=== PATIENT | male | born 1965 | race Caucasian/White ===

== ENCOUNTER 2020-04-09 13:53 | Inpatient (IN) | payer MEDICARE, OTHER ==
[~2020-04-09] VITALS: Ht 172.7 cm; Wt 68.0 kg
[~2020-04-09 13:53] MED LIST: ACETAMINOPHEN500 M3 ORAL; AMLODIPINE BESY10 MG ORAL; BENZTROPINE MESY1 MG ORAL; BETAMETHASONE D60 ML TP; BRIMONIDINE TART5 ML BOTH EYES; CALCIUM ACETAT667 M1 PO; KLONOPIN1 MG ORAL; SENSIPAR30 MG ORAL
[2020-04-09] MEDS ORDERED: LOCOID 0.1% LIP15 GM TP (13:56)
[2020-04-09] MEDS ORDERED: FAMOTIDINE20 MG ORAL (13:56)
[2020-04-09] MEDS ORDERED: CLONIDINE HCL0.1 MG PO (13:56)
[2020-04-09] MEDS ORDERED: FOLIC ACID1 MG ORAL (13:56)
[2020-04-09] MEDS ORDERED: AVAPRO300 MG ORAL (13:59)
[2020-04-09] MEDS ORDERED: KEPPRA500 M4 ORAL (13:59)
[2020-04-09] MEDS ORDERED: MINOXIDIL2.5 MG PO (13:59)
[2020-04-09] MEDS ORDERED: NEPHROVITE1 TAB ORAL (13:59)
[2020-04-09] MEDS ORDERED: LABETALOL HCL300 MG ORAL (13:59)
[2020-04-09] MEDS ORDERED: QUETIAPINE FUMA50 MG ORAL (14:00)
[2020-04-09] MEDS ORDERED: ZYPREXA5 MG ORAL (14:00)
--- NOTE | 2020-04-09 14:06 | NUR ---
ED Nurse Note: Pt BIBA from [facility] from [facility] for SOB per SNF, pt was low saturation. Current O2 sat 97% RA. Pt is COVID + on 03/29. He has AV fistula. He is set up on monitor.
--- NOTE | 2020-04-09 15:02 | Diagnostic Imaging Report ---
EXAM: XR Chest, 1 View CLINICAL HISTORY: SOB TECHNIQUE: Frontal view of the chest. COMPARISON: None FINDINGS: Hardware: Right dual-lumen central venous catheter terminates near the junction of the SVC and right atrium. Lungs/pleura: Patchy opacities throughout the lungs. No pleural effusion or pneumothorax. Mild elevation of the right hemidiaphragm. Heart/mediastinum: Mild enlargement of the cardiac silhouette. Soft tissues: Unremarkable. Bones: No acute fracture. Upper abdomen: Normal. Other: Vascular stents in the region of the right axilla. Surgical clips partially visualized in the right upper extremity. IMPRESSION: 1. Right dual-lumen central venous catheter terminates near the junction of the SVC and right atrium. 2. Patchy opacities throughout the lungs, concerning for an infectious/inflammatory process.
[2020-04-09 15:08] VITALS: BP 104/52
--- NOTE | 2020-04-09 17:05 | NUR ---
ED Nurse Note: COVID swab sent to lab. ERMD notified that pt unable to produce urine sample due to dialysis.
[2020-04-09 17:18] VITALS: BP 115/57
[2020-04-09 17:23] LABS: EOSINOPHILS % (AUTO) 0.8 % (0.0-3.0); HEMATOCRIT 25.9 % (42.0-52.0); HEMOGLOBIN 9.2 G/DL (14.2-18.0); LYMPHOCYTES % (AUTO) 16.1 % (20.0-45.0); MEAN CORPUSCULAR VOLUME 83 FL (80-99); NEUTROPHILS % (AUTO) 74.1 % (45.0-75.0); PLATELET COUNT 151 K/UL (150-450); RED BLOOD COUNT 3.11 M/UL (4.70-6.10); RED CELL DISTRIBUTION WIDTH 18.2 % (11.6-14.8); WHITE BLOOD COUNT 6.2 K/UL (4.8-10.8)
[2020-04-09 17:24] LABS: INR 1.1 (0.9-1.1)
[2020-04-09 17:28] LABS: ALANINE AMINOTRANSFERASE 16 U/L (12-78); ALBUMIN 3.4 G/DL (3.4-5.0); ALBUMIN/GLOBULIN RATIO 0.7 (1.0-2.7); ALKALINE PHOSPHATASE 97 U/L (46-116); ANION GAP 13 mmol/L (5-15); ASPARTATE AMINO TRANSFERASE 44 U/L (15-37); BILIRUBIN,TOTAL 0.8 MG/DL (0.2-1.0); BLOOD UREA NITROGEN 75 mg/dL (7-18); CALCIUM 8.1 MG/DL (8.5-10.1); CARBON DIOXIDE 25 MMOL/L (21-32); CHLORIDE 101 MMOL/L (98-107); CREATINE KINASE 494 U/L (26-308); CREATININE 13.2 MG/DL (0.55-1.30); FERRITIN 1244 NG/ML (8-388); LACTATE DEHYDROGENASE 357 U/L (81-234); SODIUM 139 MMOL/L (136-145)
[2020-04-09 17:34] LABS: POTASSIUM 6.3 MMOL/L (3.5-5.1)
--- NOTE | 2020-04-09 17:54 | Emergency Room Report ---
History of Present Illness General Chief Complaint: Dyspnea/Respdistress Present Illness HPI 54-year-old male sent in from facility for increased difficulty with breathing. Prior history of coronavirus infection. Prior history of end-stage renal disease. Patient had recent positive Covid test.Patient was sent in from facility for increased shortness with breath. He denies any current shortness of breath. He had dialysis yesterday. Allergies: Coded Allergies: ADHESIVE TAPE (Verified Allergy, Unknown, 04/09/20) MEPERIDINE (Verified Allergy, Unknown, 04/09/20) COVID-19 Screening Contact w/high risk pt: Yes Experienced COVID-19 symptoms?: Yes COVID-19 Testing performed EMISSIONS INSPECTOR: Yes - 03/29 COVID-19 Screening: Positive COVID-19 COVID-19 Testing Source: unk Patient History Past Medical History: see triage record Reviewed Nursing Documentation: PMH: Agreed; PSxH: Agreed Nursing Documentation-PMH Hx Cardiac Problems: Yes History Of Psychiatric Problem: Yes - psychosis Review of Systems All Other Systems: negative except mentioned in HPI Physical Exam Vital Signs Date Time Temp Pulse Resp B/P (MAP) Pulse Ox O2 Delivery O2 Flow Rate FiO2 04/09/20 13:40 99.3 90 16 140/100 (113) 97 Room Air Sp02 EP Interpretation: reviewed, normal General Appearance: normal inspection, well appearing, no apparent distress, alert, GCS 15, non-toxic Head: atraumatic ENT: normal ENT inspection, hearing grossly normal, normal voice Neck: normal inspection, full range of motion, supple, no bony tend Respiratory: normal inspection, lungs clear, normal breath sounds, no respiratory distress, no retraction, no wheezing Cardiovascular #1: regular rate, rhythm, no edema Gastrointestinal: normal inspection, normal bowel sounds, non tender, soft, no guarding, no hernia Genitourinary: no CVA tenderness Musculoskeletal: normal inspection, back normal, normal range of motion Neurologic: alert, motor strength/tone normal, oriented x3, responsive, speech normal, normal inspection Psychiatric: normal inspection, judgement/insight normal, mood/affect normal Medical Decision Making Diagnostic Impression: Primary Impression: ESRD (end stage renal disease) Additional Impressions: 2019 novel coronavirus detected Hyperkalemia ER Course Patient presented for increased shortness of breath and generalized weakness. Differential diagnosis include was not limited to coronavirus pneumonia, pulmonary edema, fluid overload among others. Chest x-ray read by radiology showed patchy opacities throughout the lungs no pleural effusion or pneumothorax mild elevation of the right hemidiaphragm, right dual-lumen central venous catheter was in place. EKG interpreted by tn showed normal sinus rhythm with T wave peaking consistent with hyperkalemia. Troponin was elevated minimally. Patient was given aspirin. Is given calcium and Kayexalate. Dr. Keith was contacted for inpatient management due to primary care physician. Labs Test 04/09/20 16:42 White Blood Count 6.2 K/UL (4.8-10.8) Red Blood Count 3.11 M/UL (4.70-6.10) Hemoglobin 9.2 G/DL (14.2-18.0) Hematocrit 25.9 % (42.0-52.0) Mean Corpuscular Volume 83 FL (80-99) Mean Corpuscular Hemoglobin 29.5 PG (27.0-31.0) Mean Corpuscular Hemoglobin Concent 35.5 G/DL (32.0-36.0) Red Cell Distribution Width 18.2 % (11.6-14.8) Platelet Count 151 K/UL (150-450) Mean Platelet Volume 9.3 FL (6.5-10.1) Neutrophils (%) (Auto) 74.1 % (45.0-75.0) Lymphocytes (%) (Auto) 16.1 % (20.0-45.0) Monocytes (%) (Auto) 8.0 % (1.0-10.0) Eosinophils (%) (Auto) 0.8 % (0.0-3.0) Basophils (%) (Auto) 1.0 % (0.0-2.0) Prothrombin Time 12.1 SEC (9.30-11.50) Prothromb Time International Ratio 1.1 (0.9-1.1) Activated Partial Thromboplast Time 37 SEC (23-33) D-Dimer 1.55 mg/L FEU (0.00-0.49) Sodium Level 139 MMOL/L (136-145) Potassium Level 6.3 MMOL/L (3.5-5.1) Chloride Level 101 MMOL/L (98-107) Carbon Dioxide Level 25 MMOL/L (21-32) Anion Gap 13 mmol/L (5-15) Blood Urea Nitrogen 75 mg/dL (7-18) Creatinine 13.2 MG/DL (0.55-1.30) Estimat Glomerular Filtration Rate 4.0 mL/min (>60) Glucose Level 91 MG/DL (74-106) Lactic Acid Level 1.30 mmol/L (0.4-2.0) Calcium Level 8.1 MG/DL (8.5-10.1) Ferritin 1244 NG/ML (8-388) Total Bilirubin 0.8 MG/DL (0.2-1.0) Aspartate Amino Transf (AST/SGOT) 44 U/L (15-37) Alanine Aminotransferase (ALT/SGPT) 16 U/L (12-78) Alkaline Phosphatase 97 U/L (46-116) Lactate Dehydrogenase 357 U/L (81-234) Total Creatine Kinase 494 U/L (26-308) Troponin I 0.206 ng/mL (0.000-0.056) C-Reactive Protein, Quantitative 10.0 mg/dL (0.00-0.90) Total Protein 8.3 G/DL (6.4-8.2) Albumin 3.4 G/DL (3.4-5.0) Globulin 4.9 g/dL Albumin/Globulin Ratio 0.7 (1.0-2.7) Lipase 208 U/L (73-393) EKG Diagnostic Results Rate: normal Rhythm: NSR ST Segments: other - Peak T waves Last Vital Signs Date Time Temp Pulse Resp B/P (MAP) Pulse Ox O2 Delivery O2 Flow Rate FiO2 04/09/20 17:18 99.3 88 17 115/57 100 Room Air Status: unchanged Disposition: ADMITTED INPATIENT Condition: Stable Referrals: NOT CHOSEN IPA/,REFERRING (PCP) Javy Israel MD Apr 09, 2020 17:54
[2020-04-09] MEDS ORDERED: Sodium Polystyrene Sulfonate 15gm Powder ORAL ONE (18:00)
[2020-04-09] MEDS ORDERED: Calcium Gluconate 1gm/10ml vial IVP ONE (18:00)
[2020-04-09] MEDS ORDERED: Heparin Sod 1000 units/ml 10ml IV PRN (18:10)
[2020-04-09] MEDS ORDERED: dexAMETHasone 10mg/ml Inj IV ONE (18:15)
[2020-04-09] MEDS ORDERED: Aspirin Baby 81mg ORAL ONE (18:15)
[2020-04-09 18:57] VITALS: BP 120/54
--- NOTE | 2020-04-09 19:10 | NUR ---
ED Nurse Note: Report received from CECIL MARES. Pt provided with food and drinks.
[2020-04-09] MEDS ORDERED: Albuterol 90mcg Inhaler 8gm INH PRN (21:15)
--- NOTE | 2020-04-09 21:29 | Pulmonology Progress Note ---
Subjective ROS Limited/Unobtainable: No Respiratory: Reports: shortness of breath Allergies: Coded Allergies: ADHESIVE TAPE (Verified Allergy, Unknown, 04/09/20) MEPERIDINE (Verified Allergy, Unknown, 04/09/20) Objective Last 24 Hour Vital Signs Date Time Temp Pulse Resp B/P (MAP) Pulse Ox O2 Delivery O2 Flow Rate FiO2 04/09/20 18:57 99.3 81 16 120/54 98 Room Air 04/09/20 17:18 99.3 88 17 115/57 100 Room Air 04/09/20 15:08 84 16 104/52 99 Room Air 04/09/20 14:45 84 16 Room Air 04/09/20 13:40 99.3 90 16 140/100 (113) 97 Room Air Laboratory Tests 04/09/20 16:42: White Blood Count 6.2, Red Blood Count 3.11L, Hemoglobin 9.2L, Hematocrit 25.9L, Mean Corpuscular Volume 83, Mean Corpuscular Hemoglobin 29.5, Mean Corpuscular Hemoglobin Concent 35.5, Red Cell Distribution Width 18.2H, Platelet Count 151, Mean Platelet Volume 9.3, Neutrophils (%) (Auto) 74.1, Lymphocytes (%) (Auto) 16.1L, Monocytes (%) (Auto) 8.0, Eosinophils (%) (Auto) 0.8, Basophils (%) (Auto) 1.0, Prothrombin Time 12.1H, Prothromb Time International Ratio 1.1, Activated Partial Thromboplast Time 37H, D-Dimer 1.55H, Sodium Level 139, Potassium Level 6.3*H, Chloride Level 101, Carbon Dioxide Level 25, Anion Gap 13, Blood Urea Nitrogen 75H, Creatinine 13.2H, Estimat Glomerular Filtration Rate 4.0, Glucose Level 91, Lactic Acid Level 1.30, Calcium Level 8.1L, Ferritin 1244H, Total Bilirubin 0.8, Aspartate Amino Transf (AST/SGOT) 44H, Alanine Aminotransferase (ALT/SGPT) 16, Alkaline Phosphatase 97, Lactate Dehydrogenase 357H, Total Creatine Kinase 494H, Troponin I 0.206H, C-Reactive Protein, Quantitative 10.0H, Pro-B-Type Natriuretic Peptide [Pending], Total Protein 8.3H , Albumin 3.4, Globulin 4.9, Albumin/Globulin Ratio 0.7L, Lipase 208 Current Medications Medications (Trade) Dose Ordered Sig/Duncan Route PRN Reason Start Time Stop Time Status Last Admin Dose Admin Heparin Sodium (Porcine) (Heparin Sod 1000 units/ml 10ml) 2,000 unit ONCE PRN IV HD USE 04/09/20 18:10 04/10/20 23:59 Sodium Chloride 1,000 ml @ 500 mls/hr Q2H PRN IVLG sbp<90 during hd 04/09/20 18:15 04/10/20 23:59 Assessment/Plan Assessment/Plan Pulmonary Consultation HPI Patient is a 54-year-old male with ESRD on HD,recently noted to be Covid19 positive,admitted with difficulty breathing. Prior history of end-stage renal disease. He had dialysis yesterday. Currently denies signifiacnt SOB, normalO2 sats on RA. Noted to have elevated K in the ED. Allergies: Coded Allergies: ADHESIVE TAPE (Verified Allergy, Unknown, 04/09/20) MEPERIDINE (Verified Allergy, Unknown, 04/09/20) Past Medical History: CKD,ESRD on HD, Cardiac Disease,Psychosis Family History: NC Social History: NC All Other Systems: negative except mentioned in HPI Physical Exam Vital Signs Noted Date Time Temp Pulse Resp B/P (MAP) Pulse Ox O2 Delivery O2 Flow Rate FiO2 04/09/20 13:40 99.3 90 16 140/100 (113) 97 Room Air General Appearance: normal inspection, well appearing, no apparent distress, alert, GCS 15, non-toxic Head: atraumatic ENT: normal ENT inspection, hearing grossly normal, normal voice Neck: normal inspection, full range of motion, supple, no bony tend Respiratory: normal inspection, lungs clear, normal breath sounds, no respiratory distress, no retraction, no wheezing Cardiovascular: regular rate, rhythm, no edema Gastrointestinal: normal inspection, normal bowel sounds, non tender, soft, no guarding, no hernia Genitourinary: no CVA tenderness Musculoskeletal: normal inspection, back normal, normal range of motion Neurologic: alert, motor strength/tone normal, oriented x3, responsive, speech normal, normal inspection Psychiatric: normal inspection, judgement/insight normal, mood/affect normal Per report -deferred Covid19 Medical Decision Making Impression: End stage renal disease on HD 2019 novel coronavirus infection with possible pneumonia Normal O2 sats on RA currently Hyperkalemia H/o Heart Disease Elevated Troponin Psychosis Plan - O2 PRN - Azithromycin - Hold of on Deacdron for now - Albuterol PRN - PPX - GOLF [employer]CHIT[employer] meds - Received Kayexalate - HD per Renal Labs noted Test 04/09/20 16:42 White Blood Count 6.2 K/UL (4.8-10.8) Red Blood Count 3.11 M/UL (4.70-6.10) Hemoglobin 9.2 G/DL (14.2-18.0) Hematocrit 25.9 % (42.0-52.0) Mean Corpuscular Volume 83 FL (80-99) Mean Corpuscular Hemoglobin 29.5 PG (27.0-31.0) Mean Corpuscular Hemoglobin Concent 35.5 G/DL (32.0-36.0) Red Cell Distribution Width 18.2 % (11.6-14.8) Platelet Count 151 K/UL (150-450) Mean Platelet Volume 9.3 FL (6.5-10.1) Neutrophils (%) (Auto) 74.1 % (45.0-75.0) Lymphocytes (%) (Auto) 16.1 % (20.0-45.0) Monocytes (%) (Auto) 8.0 % (1.0-10.0) Eosinophils (%) (Auto) 0.8 % (0.0-3.0) Basophils (%) (Auto) 1.0 % (0.0-2.0) Prothrombin Time 12.1 SEC (9.30-11.50) Prothromb Time International Ratio 1.1 (0.9-1.1) Activated Partial Thromboplast Time 37 SEC (23-33) D-Dimer 1.55 mg/L FEU (0.00-0.49) Sodium Level 139 MMOL/L (136-145) Potassium Level 6.3 MMOL/L (3.5-5.1) Chloride Level 101 MMOL/L (98-107) Carbon Dioxide Level 25 MMOL/L (21-32) Anion Gap 13 mmol/L (5-15) Blood Urea Nitrogen 75 mg/dL (7-18) Creatinine 13.2 MG/DL (0.55-1.30) Estimat Glomerular Filtration Rate 4.0 mL/min (>60) Glucose Level 91 MG/DL (74-106) Lactic Acid Level 1.30 mmol/L (0.4-2.0) Calcium Level 8.1 MG/DL (8.5-10.1) Ferritin 1244 NG/ML (8-388) Total Bilirubin 0.8 MG/DL (0.2-1.0) Aspartate Amino Transf (AST/SGOT) 44 U/L (15-37) Alanine Aminotransferase (ALT/SGPT) 16 U/L (12-78) Alkaline Phosphatase 97 U/L (46-116) Lactate Dehydrogenase 357 U/L (81-234) Total Creatine Kinase 494 U/L (26-308) Troponin I 0.206 ng/mL (0.000-0.056) C-Reactive Protein, Quantitative 10.0 mg/dL (0.00-0.90) Total Protein 8.3 G/DL (6.4-8.2) Albumin 3.4 G/DL (3.4-5.0) Globulin 4.9 g/dL Albumin/Globulin Ratio 0.7 (1.0-2.7) Lipase 208 U/L (73-393) EKG: Rate: normal Rhythm: NSR ST Segments: other - Peak T waves CXR: Bilateral patchy infiltrates, central line Castillo Romero MD Apr 09, 2020 21:29
[2020-04-09 22:00] VITALS: BP 110/67
[2020-04-09] MEDS ORDERED: Azithromycin 250mg tab ORAL SCH (22:00)
--- NOTE | 2020-04-09 22:00 | NUR ---
ED Nurse Note: Patient asleep on bed. VSS as documented.
[2020-04-09] MEDS: Heparin 5000 units/ml inj SUBQ SCH (22:30)
[2020-04-10] VITALS (7 sets, daily range): BP systolic 90–111; BP diastolic 50–72
--- NOTE | 2020-04-10 01:00 | NUR ---
ED Nurse Note: Paged [facility] at [phone] and spoke to DANIEL for pts HD to be done. Awaiting for RN callback
--- NOTE | 2020-04-10 04:04 | NUR ---
ED Nurse Note: Followed up with [facility] and spoke to DANIEL; nurse SUSHMA/ LENCHO would be calling to do HD for the pt per DANIEL
--- NOTE | 2020-04-10 04:10 | NUR ---
ED Nurse Note: Admit order labs sent for workup
--- NOTE | 2020-04-10 04:10 | NUR ---
ED Nurse Note: RECEIVED ADMISSION ORDERS FROM DONNA MCCOY; NOTED AND CARRIED OUT.
[2020-04-10] MEDS ORDERED: Acetaminophen 500mg (ES) tab ORAL SCH (04:15)
[2020-04-10 04:45] LABS: HEMATOCRIT 24.5 % (42.0-52.0); HEMOGLOBIN 8.6 G/DL (14.2-18.0); MEAN CORPUSCULAR VOLUME 82 FL (80-99); PLATELET COUNT 158 K/UL (150-450); RED BLOOD COUNT 2.98 M/UL (4.70-6.10); RED CELL DISTRIBUTION WIDTH 18.7 % (11.6-14.8); WHITE BLOOD COUNT 4.3 K/UL (4.8-10.8)
[2020-04-10 04:55] LABS: CALCIUM 8.1 MG/DL (8.5-10.1); CREATININE 14.5 MG/DL (0.55-1.30); POTASSIUM 5.5 MMOL/L (3.5-5.1)
[2020-04-10] MEDS ORDERED: Heparin 5000 units/ml inj SUBQ SCH (06:00)
--- NOTE | 2020-04-10 06:02 | NUR ---
ED Nurse Note: Spoke to SUSHMA RN of [facility], stated they cannot do HD at ER. HD nurse would come around [id number] once the patient is in the room.
[2020-04-10] MEDS: Heparin 5000 units/ml inj SUBQ SCH ×3 (06:07→21:28)
--- NOTE | 2020-04-10 06:44 | NUR ---
ED Nurse Note: CRE, VRE, MRSA swab sent
[2020-04-10] MEDS ORDERED: Albuterol/Ipratropium 3ml neb HHN SCH (07:00)
--- NOTE | 2020-04-10 08:15 | NUR ---
ED Nurse Note: Pt was transferred to telemetry unit under the care of Dr. Alvarez. Report for transfer was given to SUZAN Bermudez for continuity of care. Pt was transferred on stable condition, covid-19 protocol observed.
--- NOTE | 2020-04-10 08:36 | Pulmonology Progress Note ---
Subjective ROS Limited/Unobtainable: No Respiratory: Reports: shortness of breath Allergies: Coded Allergies: ADHESIVE TAPE (Verified Allergy, Unknown, 04/09/20) MEPERIDINE (Verified Allergy, Unknown, 04/09/20) Subjective care noted full code on isolation Objective Last 24 Hour Vital Signs Date Time Temp Pulse Resp B/P (MAP) Pulse Ox O2 Delivery O2 Flow Rate FiO2 04/10/20 06:00 99.0 77 18 105/63 98 Room Air 88 04/10/20 02:00 99.0 84 18 104/72 98 Room Air 88 04/09/20 22:00 99.3 84 18 110/67 98 Room Air 88 04/09/20 18:57 99.3 81 16 120/54 98 Room Air 04/09/20 17:18 99.3 88 17 115/57 100 Room Air 04/09/20 15:08 84 16 104/52 99 Room Air 04/09/20 14:45 84 16 Room Air 04/09/20 13:40 99.3 90 16 140/100 (113) 97 Room Air Intake and Output 04/09/20 04/10/20 19:00 07:00 Intake Total 0 ml Balance 0 ml Intake Oral 0 ml Objective deferred due to possible COVID Laboratory Tests 04/09/20 16:42: White Blood Count 6.2, Red Blood Count 3.11L, Hemoglobin 9.2L, Hematocrit 25.9L, Mean Corpuscular Volume 83, Mean Corpuscular Hemoglobin 29.5, Mean Corpuscular Hemoglobin Concent 35.5, Red Cell Distribution Width 18.2H, Platelet Count 151, Mean Platelet Volume 9.3, Neutrophils (%) (Auto) 74.1, Lymphocytes (%) (Auto) 16.1L, Monocytes (%) (Auto) 8.0, Eosinophils (%) (Auto) 0.8, Basophils (%) (Auto) 1.0, Prothrombin Time 12.1H, Prothromb Time International Ratio 1.1, Activated Partial Thromboplast Time 37H, D-Dimer 1.55H, Sodium Level 139, Potassium Level 6.3*H, Chloride Level 101, Carbon Dioxide Level 25, Anion Gap 13, Blood Urea Nitrogen 75H, Creatinine 13.2H, Estimat Glomerular Filtration Rate 4.0, Glucose Level 91, Lactic Acid Level 1.30, Calcium Level 8.1L, Ferritin 1244H, Total Bilirubin 0.8, Aspartate Amino Transf (AST/SGOT) 44H, Alanine Aminotransferase (ALT/SGPT) 16, Alkaline Phosphatase 97, Lactate Dehydrogenase 357H, Total Creatine Kinase 494H, Troponin I 0.206H, C-Reactive Protein, Quantitative 10.0H, Pro-B-Type Natriuretic Peptide [Pending], Total Protein 8.3H , Albumin 3.4, Globulin 4.9, Albumin/Globulin Ratio 0.7L, Lipase 208 04/10/20 04:24: White Blood Count 4.3L, Red Blood Count 2.98L, Hemoglobin 8.6L, Hematocrit 24.5L , Mean Corpuscular Volume 82, Mean Corpuscular Hemoglobin 28.8, Mean Corpuscular Hemoglobin Concent 34.9, Red Cell Distribution Width 18.7H, Platelet Count 158, Mean Platelet Volume 9.0, Neutrophils (%) (Auto) , Lymphocytes (%) (Auto) , Monocytes (%) (Auto) , Eosinophils (%) (Auto) , Basophils (%) (Auto) , Activated Partial Thromboplast Time 40H, Sodium Level 138, Potassium Level 5.5H, Chloride Level 101, Carbon Dioxide Level 23, Anion Gap 9, Blood Urea Nitrogen 83H, Creatinine 14.5H, Estimat Glomerular Filtration Rate 3.6, Glucose Level 128H, Calcium Level 8.1L, Troponin I 0.153H Current Medications Medications (Trade) Dose Ordered Sig/Duncan Route PRN Reason Start Time Stop Time Status Last Admin Dose Admin Acetaminophen (Tylenol) 500 mg Q6H PRN ORAL Pain Scale (3-5) 04/10/20 04:45 05/10/20 04:14 Albuterol Sulfate (Proventil MDI) 2 puff Q4H PRN INH Shortness of Breath 04/09/20 21:15 07/08/20 21:14 Albuterol/ Ipratropium (Albuterol/ Ipratropium) 3 ml Q6HRT HHN 04/10/20 07:00 04/15/20 06:59 Amlodipine Besylate (Norvasc) 10 mg DAILY ORAL 04/10/20 09:00 05/10/20 08:59 Benztropine Mesylate (Cogentin) 0.5 mg DAILY ORAL 04/10/20 09:00 05/10/20 08:59 Brimonidine Tartrate (Alphagan) 1 drop BID BOTH EYES 04/10/20 09:00 07/09/20 08:59 Cinacalcet (Sensipar) 90 mg DAILY ORAL 04/10/20 09:00 07/09/20 08:59 Clonazepam (KlonoPIN) 1 mg BID ORAL 04/10/20 09:00 04/17/20 08:59 Famotidine (Pepcid) 10 mg Q48H ORAL 04/10/20 09:00 07/09/20 08:59 Folic Acid (Folate) 1 mg DAILY ORAL 04/10/20 09:00 05/10/20 08:59 Heparin Sodium (Porcine) (Heparin 5000 units/ml) 5,000 units EVERY 8 HOURS SUBQ 04/09/20 22:00 05/24/20 21:59 04/10/20 06:07 Heparin Sodium (Porcine) (Heparin Sod 1000 units/ml 10ml) 2,000 unit ONCE PRN IV HD USE 04/09/20 18:10 04/10/20 23:59 Labetalol HCl (Normodyne) 300 mg TID ORAL 04/10/20 09:00 05/10/20 08:59 Levetiracetam (Keppra) 500 mg EVERY 12 HOURS ORAL 04/10/20 09:00 05/10/20 08:59 Minoxidil (Loniten) 5 mg DAILY ORAL 04/10/20 09:00 07/09/20 08:59 Olanzapine (ZyPREXA) 5 mg BID ORAL 04/10/20 09:00 05/25/20 08:59 Quetiapine Fumarate (SEROqueL) 50 mg BID ORAL 04/10/20 09:00 05/25/20 08:59 Sodium Chloride 1,000 ml @ 500 mls/hr Q2H PRN IVLG sbp<90 during hd 04/09/20 18:15 04/10/20 23:59 Vitamin B Complex/ Vit C/Folic Acid (Nephrovite) 1 tab DAILY ORAL 04/10/20 09:00 05/10/20 08:59 Assessment/Plan Assessment/Plan Impression: End stage renal disease on HD 2019 novel coronavirus infection with possible pneumonia Normal O2 sats on RA currently Hyperkalemia H/o Heart Disease Elevated Troponin Psychosis Plan - O2 PRN - Azithromycin - Albuterol PRN - monitor imaging - DVT prophylaxis - HD per Renal - monitor for change and await further results impression, plan, and exam edited and reviewed in detail care discussed with Jonathan Joe MD Apr 10, 2020 08:36
--- NOTE | 2020-04-10 08:45 | NUR ---
NURSE NOTES: Admitted pt from the ED. pt is asleep and arousable to touch. respiration is even and unlabored on room air. HOB elevated. no facial grimacing for pain noted. no episodes of coughing noted at this time. RUC perma-cath inplace. pt is awaiting for dialysis. call light is within reach.
[2020-04-10] MEDS ORDERED: Minoxidil 2.5mg tab ORAL SCH (09:00)
--- NOTE | 2020-04-10 10:15 | History and Physical Report ---
DATE OF ADMISSION: 04/09/2020 CHIEF COMPLAINT: Shortness of breath. HISTORY OF PRESENT ILLNESS: This is a 54-year-old male from [facility]. The patient was just discharged from [facility] due to hemodialysis access problems. He turned out COVID-19 positive last week. The patient was reported to have increased shortness of breath in his facility. PAST MEDICAL HISTORY: 1. End-stage renal failure, on dialysis. 2. Hypertensive cardiovascular disease. 3. Schizophrenia. 4. Glaucoma. 5. Secondary hyperparathyroidism. MEDICATIONS: Tylenol as needed, albuterol inhalation, amlodipine, baby aspirin, benztropine, Alphagan, Sensipar, Klonopin, DuoNeb inhalation, Pepcid, folic acid, Keppra, minoxidil, Nephro-Leona, Zyprexa, and Seroquel. ALLERGIES: Allergies to adhesive tape and meperidine. FAMILY HISTORY: Unremarkable. SOCIAL HISTORY: [facility] in a prison. HABITS: He is a heavy cigarette smoker. REVIEW OF SYSTEMS: HEENT: Hearing and eyesight are normal. ENDOCRINE: Significant for severe secondary hyperparathyroidism. RESPIRATORY: The patient is a heavy cigarette smoker and his shortness of breath is actually not new. CARDIAC: He denies chest pain or palpitations. GASTROINTESTINAL: No history of hematochezia, melena, hematemesis, diarrhea, or constipation. NEUROLOGIC: No history of stroke. He has history of seizures, which are rare. PSYCHIATRIC: Significant for schizophrenia, under control. PHYSICAL EXAMINATION: GENERAL: This is an elderly male, who is in no acute distress. VITAL SIGNS: Blood pressure 95/70, pulse is 82 and regular, respirations 20, and temperature 99. HEENT: The head is normocephalic and atraumatic. Pupils are equal, round, and reactive to light and accommodation consensually. NECK: Supple. Trachea midline. There was no lymphadenopathy or thyromegaly. LUNGS: Bilateral wheezes. HEART: Regular rate and rhythm without rubs, murmurs, or gallops. ABDOMEN: Soft and nontender. Bowel sounds were active. EXTREMITIES: No clubbing, cyanosis, or edema. He has a left upper arm AV fistula. NEUROLOGIC: He is alert and oriented x4. Cranial nerves II through XII intact. LABORATORY AND ANCILLARY DATA: On admission yesterday, hematocrit 24.5. The rest of the CBC shows platelet count 158,000, WBC 4.3. Chemistry - his potassium before Kayexalate was 6.3, today 5.5; BUN 75, today 83. Troponin level 0.206 and today 0.153. IMAGING REPORT: right dual-lumen central venous catheter terminates near the junction of the SVC and right atrium. Patchy opacities throughout the lungs concerning for infectious, inflammatory process. ASSESSMENT: 1. Bilateral COVID-19 pneumonia with mild hypoxia. 2. End-stage renal failure, on dialysis. 3. Hypertensive cardiovascular disease. 4. Schizophrenia. 5. Glaucoma. 6. Secondary hyperparathyroidism. 7. Hyperkalemia. PLAN: 1. Hemodialysis today. 2. ID consult 3. Continue prison medications. Daily Guerrero M.D. DR: [place] JOB#: [id number] CC: ED
[2020-04-10] MEDS: Sensipar 30mg Tab ORAL SCH (11:34)
[2020-04-10] MEDS: OLANZapine 2.5mg tab ORAL SCH ×2 (11:34→18:10)
[2020-04-10] MEDS: Benztropine 1mg tab ORAL SCH (11:35)
[2020-04-10] MEDS: Nephrovite tab (Rena-Vite) ORAL SCH (11:35)
--- NOTE | 2020-04-10 12:24 | NUR ---
pt for HD schedule [facility] message left in her VM at out of the office, duty worker, [employer] yard person tel# [phone], and message left.
--- NOTE | 2020-04-10 14:00 | Consultation ---
DATE OF CONSULTATION: 04/10/2020 INFECTIOUS DISEASES CONSULTATION CONSULTING PHYSICIAN: Alexus Michael MD. REFERRING PHYSICIAN: Daily Guerrero MD. REASON FOR CONSULTATION: COVID-19 pneumonia. HISTORY OF PRESENTING ILLNESS: This is a 54-year-old gentleman with history of hypertension, schizophrenia, renal failure, on dialysis, glaucoma, secondary hyperparathyroidism, who was discharged from [facility]. He turned out to have COVID-19 pneumonia and he has increasing shortness of breath. An Infectious Diseases consultation has been obtained for antibiotics. PAST MEDICAL HISTORY: 1. History of hypertension. 2. Schizophrenia. 3. Renal failure, on dialysis. 4. Glaucoma. 5. Secondary hyperparathyroidism. SOCIAL HISTORY: He is a smoker. He does not drink or use drugs. FAMILY HISTORY: Unknown. REVIEW OF SYSTEMS: Unable to obtain currently. MEDICATIONS: As an inpatient, he is on Epogen, famotidine, vitamin B, C, folic acid, Seroquel, Zyprexa, Keppra, Normodyne, folic acid, Klonopin, Sensipar, brimonidine drops, benztropine, amlodipine, Tylenol, subcutaneous heparin, albuterol. ALLERGIES: 1. Adhesive tape. 2. Meperidine. PHYSICAL EXAMINATION: VITAL SIGNS: Temperature of 98.2, T-max of 99.3, pulse of 68, respiratory rate 18, blood pressure 99/57, O2 saturation of 99% on room air. Examination deferred due to COVID-19. LABORATORY AND DIAGNOSTIC DATA: White count 4.3, hemoglobin 8.6, hematocrit 24.5, MCV 82, platelet count 158. Sodium 138, potassium 5.5, chloride 101, bicarb 23, BUN 83, creatinine 14.5, glucose 128, calcium 8.1. AST 44, ALT 16, and alkaline phosphatase 97, LDH 357. CK of 494. Troponin 0.153. C-reactive protein of 10. Total protein 8.3, albumin 3.4. Lipase of 208. Hepatitis B surface antigen is pending. Chest x-ray is showing patchy opacities throughout the lungs concerning for infectious inflammatory process. ASSESSMENT: This is a 54-year-old gentleman with history of hypertension, renal failure, on dialysis, schizophrenia, who comes in with shortness of breath and was found to have. 1. COVID-19 pneumonia. He is on room air with saturation of 99%. 2. Renal failure, on dialysis. 3. Schizophrenia. 4. Hypertension. PLAN: 1. We will start the patient on ivermectin one dose. 2. Continue Decadron, that was started yesterday, day #2. 3. Continue isolation. 4. We will follow up the patient clinically. I would like to thank, Dr. Guerrero, for this consultation. Alexus Michael M.D. DR: BUTCH JOB#: [id number] CC: Daily Guerrero MD.; Fax#: [phone]
--- NOTE | 2020-04-10 14:34 | NUR ---
CASE MANAGEMENT:REVIEW BIBA FROM [facility] CC; SOB SI: HYPERKALEMIA. ESRD. COVID(+) 99.3 90 16 90/72 97% ON RA K+6.3 BUN+75 CR+13.2 IS: CA GLUCONATE KAYEXALATE PO ASA PO IV DECADRON 1L NS BOLUS NOVEL COVID : TO TELEMETRY
[2020-04-10] MEDS: Brimonidine 0.2% Opth Sol BOTH EYES SCH (18:51)
--- NOTE | 2020-04-10 19:24 | NUR ---
HAND-OFF: Report given to DONATO/RN.
--- NOTE | 2020-04-10 19:30 | NUR ---
NURSE NOTES: Received report from Aidan MARES.The patient was noted with anxiety and agitation. He was immediately yelling that he need a Benadryl. A calm environment was provided as indicated.The patient completed dialysis today as a result of hyperkalemia with 2.5 liters of fluids taken out.Patient has a right upper chest PermCath noted with clean dressing.He has a LFA 22g that is patent and asymptomatic.The bed in low level, call light within easy reach. will continue to monitor as indicated.
--- NOTE | 2020-04-10 20:56 | NUR ---
NURSE NOTES: A voice message was left for Dr Guerrero concerning the patient increasing anxiety and agitations and that the patient is asking for Benadryl for itchiness.
[2020-04-10] MEDS ORDERED: Epoetin Alfa-EPBX (NON ESRD)4000 units/ml vial SUBQ SCH (21:00)
[2020-04-10] MEDS: Acetaminophen 500mg (ES) tab ORAL PRN (21:23)
--- NOTE | 2020-04-10 23:31 | NUR ---
NURSE NOTES: The patient is increasingly anxious and has removed his front desk monitor and thrown on the floor that he does not want it at this time. A calm environment was provided and will followup with Dr. Guerrero as indicated..
[2020-04-11] VITALS (7 sets, daily range): BP systolic 96–108; BP diastolic 50–65
[2020-04-11] MEDS: Heparin 5000 units/ml inj SUBQ SCH ×3 (06:15→21:10)
--- NOTE | 2020-04-11 07:30 | NUR ---
NURSE NOTES: Received patient report from SUZAN Villanueva. Patient AO x3. No pain or discomfort noted at this time. Patient has a right upper chest PermCath noted with clean dressing.He has a LFA 22g that is patent and asymptomatic. Bed in lowest position, locked with side rails x2 up. Call light within reach.
--- NOTE | 2020-04-11 07:30 | NUR ---
NURSE HAND-OFF REPORT: Important Events on Shift:Anxiety and agitations noted Patient Status: Diet: Pending Orders: Pending Results/Labs: Pending MD notification: Latest Vital Signs: Temperature 98.6 , Pulse 108 , B/P 108 /65 , Respiratory Rate 21 , O2 SAT 96 , Room Air, O2 Flow Rate . Vital Sign Comment: EKG Rhythm: ST w/AVB Rhythm change?: Y Notified?: Nohelia Romero MD Response: Latest Ch Fall Score: 50 Fall Risk: High Risk Safety Measures: Call light Within Reach, Bed Alarm Zone 1, Side Rails Side Rails x1, Bed position Low and Locked. Fall Precautions: Yellow Socks Yellow Gown Door Sign Patient Fall Education Report given to .
[2020-04-11] MEDS: OLANZapine 2.5mg tab ORAL SCH ×2 (08:47→17:17)
[2020-04-11] MEDS: Sensipar 30mg Tab ORAL SCH (08:47)
[2020-04-11] MEDS: Nephrovite tab (Rena-Vite) ORAL SCH (08:47)
[2020-04-11] MEDS: Benztropine 1mg tab ORAL SCH (08:48)
[2020-04-11] MEDS: Brimonidine 0.2% Opth Sol BOTH EYES SCH ×2 (08:49→17:17)
[2020-04-11] MEDS ORDERED: NORCO 5-325 TA1 EAC1 ORAL (09:57)
[2020-04-11] MEDS ORDERED: NIZORAL 2% C1 APPLIC TOPIC (09:57)
[2020-04-11] MEDS ORDERED: VITAMIN D325 MC1 PO (09:57)
[2020-04-11] MEDS ORDERED: CINACALCET HCL90 MG PO (09:57)
[2020-04-11] MEDS ORDERED: LUMIGAN2.5 ML BOTH EYES (09:57)
[2020-04-11] MEDS ORDERED: THROAT DROPS2.8 MG MM (09:57)
[2020-04-11] MEDS ORDERED: BENZTROPINE ME0.5 MG ORAL (09:57)
[2020-04-11] MEDS ORDERED: OXISTAT30 G1 TP (09:57)
--- NOTE | 2020-04-11 10:18 | Infectious Diseases Prog Note ---
Assessment/Plan Assessment/Plan A: 1. COVID-19 pneumonia. 2. Renal failure, on dialysis. 3. Schizophrenia. 4. Hypertension. PLAN: 1. Got ivermectin one dose. 2. Discontinue Decadron, 3. Continue isolation. Subjective ROS Limited/Unobtainable: No Constitutional: Reports: anorexia, other - dosen't feel good Respiratory: Reports: dry cough; Denies: shortness of breath Gastrointestinal/Abdominal: Reports: no symptoms Genitourinary: Reports: no symptoms Allergies: Coded Allergies: ADHESIVE TAPE (Verified Allergy, Unknown, 04/09/20) MEPERIDINE (Verified Allergy, Unknown, 04/09/20) Objective Last 24 Hour Vital Signs Date Time Temp Pulse Resp B/P (MAP) Pulse Ox O2 Delivery O2 Flow Rate FiO2 04/11/20 08:49 98 100/58 04/11/20 08:49 98 100/58 04/11/20 08:00 98.0 98 19 100/58 (72) 96 04/11/20 04:00 98.6 108 21 108/65 (79) 96 04/11/20 04:00 123 04/11/20 00:00 99.1 102 19 99/60 (73) 95 04/10/20 21:00 Room Air 04/10/20 20:00 99 04/10/20 20:00 98.9 108 18 102/50 (67) 97 04/10/20 18:00 82 111/62 04/10/20 16:00 83 04/10/20 16:00 98.3 82 20 104/62 (76) 95 04/10/20 13:00 81 103/56 04/10/20 12:00 98.1 73 20 103/56 (72) 95 04/10/20 12:00 81 Height (Feet): 5 Height (Inches): 8.00 Weight (Pounds): 150 General Appearance: no acute distress HEENT: mucous membranes moist Respiratory/Chest: lungs clear Cardiovascular: tachycardia, other - Permacath Abdomen: soft, non tender Extremities: no edema Neurologic/Psychiatric: alert, responsive Microbiology Date/Time Source Procedure Growth Status 04/10/20 06:30 Rectum Received Current Medications Medications (Trade) Dose Ordered Sig/Duncan Route PRN Reason Start Time Stop Time Status Last Admin Dose Admin Acetaminophen (Tylenol) 500 mg Q6H PRN ORAL Pain Scale (3-5) 04/10/20 04:45 05/10/20 04:14 04/10/20 21:23 Albuterol Sulfate (Proventil MDI) 2 puff Q4H PRN INH Shortness of Breath 04/09/20 21:15 07/08/20 21:14 Amlodipine Besylate (Norvasc) 10 mg DAILY ORAL 04/10/20 09:00 05/10/20 08:59 Benztropine Mesylate (Cogentin) 0.5 mg DAILY ORAL 04/10/20 09:00 05/10/20 08:59 04/11/20 08:48 Brimonidine Tartrate (Alphagan) 1 drop BID BOTH EYES 04/10/20 09:00 07/09/20 08:59 04/11/20 08:49 Cinacalcet (Sensipar) 90 mg DAILY ORAL 04/10/20 09:00 07/09/20 08:59 04/11/20 08:47 Clonazepam (KlonoPIN) 1 mg BID ORAL 04/10/20 09:00 04/17/20 08:59 04/11/20 08:48 Dexamethasone (Decadron) 6 mg Q24H ORAL 04/10/20 12:00 04/18/20 12:01 04/10/20 14:42 Epoetin Liu (Epoetin Liu-EPBX(NON ESRD)) 8,000 unit FRI-FRI-FRI SUBQ 04/10/20 21:00 07/09/20 20:59 04/10/20 21:21 Famotidine (Pepcid) 10 mg Q48H ORAL 04/10/20 09:00 07/09/20 08:59 04/10/20 11:35 Folic Acid (Folate) 1 mg DAILY ORAL 04/10/20 09:00 05/10/20 08:59 04/11/20 08:48 Heparin Sodium (Porcine) (Heparin 5000 units/ml) 5,000 units EVERY 8 HOURS SUBQ 04/09/20 22:00 05/24/20 21:59 04/11/20 06:15 Labetalol HCl (Normodyne) 300 mg TID ORAL 04/10/20 09:00 05/10/20 08:59 Levetiracetam (Keppra) 500 mg EVERY 12 HOURS ORAL 04/10/20 09:00 05/10/20 08:59 04/11/20 08:48 Olanzapine (ZyPREXA) 5 mg BID ORAL 04/10/20 09:00 05/25/20 08:59 04/11/20 08:47 Quetiapine Fumarate (SEROqueL) 50 mg BID ORAL 04/10/20 09:00 05/25/20 08:59 04/11/20 08:48 Vitamin B Complex/ Vit C/Folic Acid (Nephrovite) 1 tab DAILY ORAL 04/10/20 09:00 05/10/20 08:59 04/11/20 08:47 Ej Leon MD Apr 11, 2020 10:18
--- NOTE | 2020-04-11 10:22 | Pulmonology Progress Note ---
Subjective ROS Limited/Unobtainable: No Constitutional: Reports: anorexia Respiratory: Reports: shortness of breath Gastrointestinal/Abdominal: Reports: no symptoms Allergies: Coded Allergies: ADHESIVE TAPE (Verified Allergy, Unknown, 04/09/20) MEPERIDINE (Verified Allergy, Unknown, 04/09/20) Subjective care noted full code on isolation off oxygen Objective Last 24 Hour Vital Signs Date Time Temp Pulse Resp B/P (MAP) Pulse Ox O2 Delivery O2 Flow Rate FiO2 04/11/20 08:49 98 100/58 04/11/20 08:49 98 100/58 04/11/20 08:00 98.0 98 19 100/58 (72) 96 04/11/20 04:00 98.6 108 21 108/65 (79) 96 04/11/20 04:00 123 04/11/20 00:00 99.1 102 19 99/60 (73) 95 04/10/20 21:00 Room Air 04/10/20 20:00 99 04/10/20 20:00 98.9 108 18 102/50 (67) 97 04/10/20 18:00 82 111/62 04/10/20 16:00 83 04/10/20 16:00 98.3 82 20 104/62 (76) 95 04/10/20 13:00 81 103/56 04/10/20 12:00 98.1 73 20 103/56 (72) 95 04/10/20 12:00 81 Intake and Output 04/10/20 04/11/20 19:00 07:00 Intake Total 75 ml Output Total 2500 ml Balance -2500 ml 75 ml Intake Oral 75 ml Output Hemodialysis UF 2500 ml Objective deferred due to possible COVID Microbiology Date/Time Source Procedure Growth Status 04/10/20 06:30 Rectum Received Current Medications Medications (Trade) Dose Ordered Sig/Duncan Route PRN Reason Start Time Stop Time Status Last Admin Dose Admin Acetaminophen (Tylenol) 500 mg Q6H PRN ORAL Pain Scale (3-5) 04/10/20 04:45 05/10/20 04:14 04/10/20 21:23 Albuterol Sulfate (Proventil MDI) 2 puff Q4H PRN INH Shortness of Breath 04/09/20 21:15 07/08/20 21:14 Amlodipine Besylate (Norvasc) 10 mg DAILY ORAL 04/10/20 09:00 05/10/20 08:59 Benztropine Mesylate (Cogentin) 0.5 mg DAILY ORAL 04/10/20 09:00 05/10/20 08:59 04/11/20 08:48 Brimonidine Tartrate (Alphagan) 1 drop BID BOTH EYES 04/10/20 09:00 07/09/20 08:59 04/11/20 08:49 Cinacalcet (Sensipar) 90 mg DAILY ORAL 04/10/20 09:00 07/09/20 08:59 04/11/20 08:47 Clonazepam (KlonoPIN) 1 mg BID ORAL 04/10/20 09:00 04/17/20 08:59 04/11/20 08:48 Epoetin Liu (Epoetin Liu-EPBX(NON ESRD)) 8,000 unit SUBQ 04/10/20 21:00 07/09/20 20:59 04/10/20 21:21 Famotidine (Pepcid) 10 mg Q48H ORAL 04/10/20 09:00 07/09/20 08:59 04/10/20 11:35 Folic Acid (Folate) 1 mg DAILY ORAL 04/10/20 09:00 05/10/20 08:59 04/11/20 08:48 Heparin Sodium (Porcine) (Heparin 5000 units/ml) 5,000 units EVERY 8 HOURS SUBQ 04/09/20 22:00 05/24/20 21:59 04/11/20 06:15 Labetalol HCl (Normodyne) 300 mg TID ORAL 04/10/20 09:00 05/10/20 08:59 Levetiracetam (Keppra) 500 mg EVERY 12 HOURS ORAL 04/10/20 09:00 05/10/20 08:59 04/11/20 08:48 Olanzapine (ZyPREXA) 5 mg BID ORAL 04/10/20 09:00 05/25/20 08:59 04/11/20 08:47 Quetiapine Fumarate (SEROqueL) 50 mg BID ORAL 04/10/20 09:00 05/25/20 08:59 04/11/20 08:48 Vitamin B Complex/ Vit C/Folic Acid (Nephrovite) 1 tab DAILY ORAL 04/10/20 09:00 05/10/20 08:59 04/11/20 08:47 Assessment/Plan Assessment/Plan Impression: End stage renal disease on HD 2019 novel coronavirus infection with possible pneumonia Normal O2 sats on RA currently Hyperkalemia H/o Heart Disease Elevated Troponin Psychosis Plan - O2 PRN - Azithromycin - Albuterol PRN - monitor imaging - DVT prophylaxis - HD per Renal - monitor for change and await further results - pulmonary chamberlain stable impression, plan, and exam edited and reviewed in detail care discussed with Jonathan Joe MD Apr 11, 2020 10:22
--- NOTE | 2020-04-11 13:40 | Nephrology Progress Note ---
Assessment/Plan Plan Mild Covid 19 On room air. Saturating well DC to SNF. DW ID. Subjective Subjective No new c/o Objective Objective Last 24 Hour Vital Signs Date Time Temp Pulse Resp B/P (MAP) Pulse Ox O2 Delivery O2 Flow Rate FiO2 04/11/20 13:00 105 98/55 04/11/20 09:00 Room Air 04/11/20 08:49 98 100/58 04/11/20 08:49 98 100/58 04/11/20 08:00 98.0 98 19 100/58 (72) 96 04/11/20 04:00 98.6 108 21 108/65 (79) 96 04/11/20 04:00 123 04/11/20 00:00 99.1 102 19 99/60 (73) 95 04/10/20 21:00 Room Air 04/10/20 20:00 99 04/10/20 20:00 98.9 108 18 102/50 (67) 97 04/10/20 18:00 82 111/62 04/10/20 16:00 83 04/10/20 16:00 98.3 82 20 104/62 (76) 95 Intake and Output 04/10/20 04/11/20 19:00 07:00 Intake Total 75 ml Output Total 2500 ml Balance -2500 ml 75 ml Intake Oral 75 ml Output Hemodialysis UF 2500 ml Height (Feet): 5 Height (Inches): 8.00 Weight (Pounds): 150 Objective CV RR Lungs few wheezes Abd SNT. BS + E no CCE Daily Guerrero MD Apr 11, 2020 13:40
--- NOTE | 2020-04-11 17:30 | NUR ---
*-*DISCHARGE PLANNING*-* PATIENT HAS BEEN REFERRED BACK TO: [facility] P: [phone] S/W DAQUAN, ON LOCK DOWN, WAITING FOR APPROVAL FROM [facility]
--- NOTE | 2020-04-11 17:32 | NUR ---
*-*DISCHARGE PLANNING*-* PATIENT HAS BEEN BACK TO: [facility] P: [phone] S/W DONALDO, WILL FOLLOW UP TOMORROW 04/12/2020
--- NOTE | 2020-04-11 19:10 | NUR ---
NURSE NOTES: Received patient from SUZAN Grace. AAOx2, able to verbalize needs with bouts on confusion. Seen up in bed during change of shift with IV site removed. Reminded patient to stay in bed and call for assistance whenever necessary. Reoriented to reality. No complaints of pain or discomfort at this time. Pt complied and went back to bed. On 1lpm per nasal cannula, saturating well. Bed in lowest position, brakes engaged and bed alarm on. Bed rails raised x2. Call light placed within reach. Will continue to monitor. Seizure precaution in place.
--- NOTE | 2020-04-11 19:24 | NUR ---
NURSE HAND-OFF REPORT: Important Events on Shift:D/C to [facility] canceled Patient Status: Stable Diet: Renal Pending Orders: na Pending Results/Labs:na Pending notification:na Latest Vital Signs: Temperature 97.9 , Pulse 108 , B/P 96 /55 , Respiratory Rate 20 , O2 SAT 96 , Room Air, O2 Flow Rate . Vital Sign Comment: Stable EKG Rhythm: Sinus Rhythm Rhythm change?: N MD Notified?: Nohelia Romero MD Response: Latest Ch Fall Score: 50 Fall Risk: High Risk Safety Measures: Call light Within Reach, Bed Alarm Zone 1, Side Rails Side Rails x1, Bed position Low and Locked. Fall Precautions: Yellow Socks Yellow Gown Door Sign Patient Fall Education Report given to SUZAN Branch.
[2020-04-11] MEDS: Acetaminophen 500mg (ES) tab ORAL PRN (22:40)
[2020-04-12] VITALS: BP 97/52
--- NOTE | 2020-04-12 03:45 | NUR ---
NURSE NOTES: PT refused IV insertion repeatedly. No IV meds at this time. Explained risks and benefits, patient still refused. Will continue to monitor.
[2020-04-12 04:00] VITALS: BP 110/64
[2020-04-12] MEDS: Acetaminophen 500mg (ES) tab ORAL PRN ×2 (04:51→13:03)
[2020-04-12] MEDS: Heparin 5000 units/ml inj SUBQ SCH ×2 (05:46→14:00)
--- NOTE | 2020-04-12 07:42 | NUR ---
NURSE HAND-OFF REPORT: Important Events on Shift:[Pt refused IV insertion during the shift. Per CM notes, [facility] to be contacted for placement] Patient Status: [FC] Diet: [Renal] Pending Orders: [] Pending Results/Labs:[] Pending MD notification:[] Latest Vital Signs: Temperature 99.5 , Pulse 84 , B/P 110 /64 , Respiratory Rate 20 , O2 SAT 96 , Nasal Cannula, O2 Flow Rate 1.0 . Vital Sign Comment: [] EKG Rhythm: Sinus Rhythm Rhythm change?: N MD Notified?: Nohelia Romero MD Response: Latest Ch Fall Score: 50 Fall Risk: High Risk Safety Measures: Call light Within Reach, Bed Alarm Zone 1, Side Rails Side Rails x1, Bed position Low and Locked. Fall Precautions: Yellow Socks Yellow Gown Door Sign Patient Fall Education Report given to [SUZAN Montes].
--- NOTE | 2020-04-12 07:45 | NUR ---
NURSE NOTES: pt is in bed and asleep. breakfast is at bedside. pt is on school bus monitor showing no signs of cardiac or respiratory distress. bed is locked and in lowest position, call light is within reach, encouraged pt to use call light. pt is on 4L NC
[2020-04-12 08:00] VITALS: BP 93/50
[2020-04-12] MEDS: Nephrovite tab (Rena-Vite) ORAL SCH (09:48)
[2020-04-12] MEDS: OLANZapine 2.5mg tab ORAL SCH (09:48)
[2020-04-12] MEDS: Sensipar 30mg Tab ORAL SCH (09:48)
[2020-04-12] MEDS: Benztropine 1mg tab ORAL SCH (09:49)
[2020-04-12] MEDS: Brimonidine 0.2% Opth Sol BOTH EYES SCH ×2 (09:55→18:34)
--- NOTE | 2020-04-12 10:34 | NUR ---
NURSE NOTES: Dr. Guerrero called and said, he wants the pt to go back to [facility] Alex Calderón MD called to [facility] and spoke with them, They're will take pt back. Called Maragret VILLASENOR and left message.
--- NOTE | 2020-04-12 10:55 | Infectious Diseases Prog Note ---
Assessment/Plan Assessment/Plan antibiotics : none A 1. COVID-19 pneumonia on room air with saturation of 96%. s/p ivermectin 2. Renal failure, on dialysis. 3. Schizophrenia. 4. Hypertension. P 1. continue off antibiotics 2. Continue isolation. 3. We will follow up the patient clinically. Subjective ROS Limited/Unobtainable: Yes Allergies: Coded Allergies: ADHESIVE TAPE (Verified Allergy, Unknown, 04/09/20) MEPERIDINE (Verified Allergy, Unknown, 04/09/20) Objective Last 24 Hour Vital Signs Date Time Temp Pulse Resp B/P (MAP) Pulse Ox O2 Delivery O2 Flow Rate FiO2 04/12/20 09:00 82 93/50 04/12/20 09:00 82 93/50 04/12/20 08:00 85 04/12/20 08:00 98.0 82 20 93/50 (64) 98 04/12/20 05:36 99.5 04/12/20 04:00 101.1 84 20 110/64 (79) 96 04/12/20 04:00 81 04/12/20 00:00 89 04/12/20 00:00 99.5 87 20 97/52 (67) 92 04/11/20 23:10 100.0 04/11/20 21:00 Nasal Cannula 1.0 04/11/20 20:00 89 04/11/20 20:00 100.0 91 20 100/50 (67) 96 04/11/20 18:00 97.9 108 20 96/55 (69) 96 04/11/20 17:17 106 96/60 04/11/20 16:00 90 04/11/20 16:00 97.9 108 20 96/55 (69) 96 04/11/20 13:00 105 98/55 04/11/20 12:00 98.3 105 20 103/60 (74) 96 04/11/20 12:00 88 Height (Feet): 5 Height (Inches): 8.00 Weight (Pounds): 150 Microbiology Date/Time Source Procedure Growth Status 04/10/20 06:30 Rectum - Final NO CARBAPENEM-RESISTANT ENTEROBACTERI... Complete 04/10/20 06:30 Rectum Received 04/09/20 15:13 Nasopharynx Coronavirus COVID-19 PCR (ALLIE) - Final Complete Current Medications Medications (Trade) Dose Ordered Sig/Duncan Route PRN Reason Start Time Stop Time Status Last Admin Dose Admin Acetaminophen (Tylenol) 500 mg Q6H PRN ORAL Pain Scale (3-5) 04/10/20 04:45 05/10/20 04:14 04/12/20 04:51 Albuterol Sulfate (Proventil MDI) 2 puff Q4H PRN INH Shortness of Breath 04/09/20 21:15 07/08/20 21:14 Amlodipine Besylate (Norvasc) 10 mg DAILY ORAL 04/10/20 09:00 05/10/20 08:59 Benztropine Mesylate (Cogentin) 0.5 mg DAILY ORAL 04/10/20 09:00 05/10/20 08:59 04/12/20 09:49 Brimonidine Tartrate (Alphagan) 1 drop BID BOTH EYES 04/10/20 09:00 07/09/20 08:59 04/12/20 09:55 Cinacalcet (Sensipar) 90 mg DAILY ORAL 04/10/20 09:00 07/09/20 08:59 04/12/20 09:48 Clonazepam (KlonoPIN) 1 mg BID ORAL 04/10/20 09:00 04/17/20 08:59 04/12/20 09:48 Epoetin Liu (Epoetin Liu-EPBX(NON ESRD)) 8,000 unit FRI-FRI-FRI SUBQ 04/10/20 21:00 07/09/20 20:59 04/10/20 21:21 Famotidine (Pepcid) 10 mg Q48H ORAL 04/10/20 09:00 07/09/20 08:59 04/12/20 09:47 Folic Acid (Folate) 1 mg DAILY ORAL 04/10/20 09:00 05/10/20 08:59 04/12/20 09:47 Heparin Sodium (Porcine) (Heparin 5000 units/ml) 5,000 units EVERY 8 HOURS SUBQ 04/09/20 22:00 05/24/20 21:59 04/12/20 05:46 Labetalol HCl (Normodyne) 300 mg TID ORAL 04/10/20 09:00 05/10/20 08:59 Levetiracetam (Keppra) 500 mg EVERY 12 HOURS ORAL 04/10/20 09:00 05/10/20 08:59 04/12/20 09:49 Olanzapine (ZyPREXA) 5 mg BID ORAL 04/10/20 09:00 05/25/20 08:59 04/12/20 09:48 Quetiapine Fumarate (SEROqueL) 50 mg BID ORAL 04/10/20 09:00 05/25/20 08:59 04/12/20 09:50 Vitamin B Complex/ Vit C/Folic Acid (Nephrovite) 1 tab DAILY ORAL 04/10/20 09:00 05/10/20 08:59 04/12/20 09:48 Alexus Michael MD Apr 12, 2020 10:55
[2020-04-12 12:00] VITALS: BP 122/64
--- NOTE | 2020-04-12 12:12 | NUR ---
*-*DISCHARGE PLANNING*-* PATIENT HAS BEEN REFERRED BACK TO: [facility] P: [phone] S/W DAQUAN, ON LOCK DOWN, WAITING FOR APPROVAL FROM [facility], WILL CALL BACK TO FOLLOW UP.
--- NOTE | 2020-04-12 12:13 | NUR ---
*-*DISCHARGE PLANNING*-* PATIENT HAS BEEN BACK TO: [facility] P: [phone] S/W DONALDO, DOING ROOM CHANGES WILL, CALL BACK IF ROOM BECOMES AVAILABLE.
--- NOTE | 2020-04-12 12:51 | NUR ---
*-*DISCHARGE PLANNING*-* PATIENT HAS BEEN ACCEPTED BACK TO: [facility] P: [phone] FOR NURSE TO NURSE REPORT S/W DAQUAN, WILL GIVE ROOM# UPON ARRIVAL. [facility] SET FOR 7PM S/W AURY [id number].
--- NOTE | 2020-04-12 14:12 | NUR ---
NURSE NOTES: Called [facility] to give report. No answer
--- NOTE | 2020-04-12 14:57 | Pulmonology Progress Note ---
Subjective ROS Limited/Unobtainable: Yes Constitutional: Reports: anorexia Respiratory: Reports: shortness of breath Gastrointestinal/Abdominal: Reports: no symptoms Allergies: Coded Allergies: ADHESIVE TAPE (Verified Allergy, Unknown, 04/09/20) MEPERIDINE (Verified Allergy, Unknown, 04/09/20) Subjective care noted full code on isolation now on oxygen Objective Last 24 Hour Vital Signs Date Time Temp Pulse Resp B/P (MAP) Pulse Ox O2 Delivery O2 Flow Rate FiO2 04/12/20 12:50 89 122/64 04/12/20 12:00 98.1 87 20 122/64 (83) 95 04/12/20 12:00 83 04/12/20 09:00 82 93/50 04/12/20 09:00 82 93/50 04/12/20 09:00 Nasal Cannula 4.0 04/12/20 08:00 85 04/12/20 08:00 98.0 82 20 93/50 (64) 98 04/12/20 05:36 99.5 04/12/20 04:00 101.1 84 20 110/64 (79) 96 04/12/20 04:00 81 04/12/20 00:00 89 04/12/20 00:00 99.5 87 20 97/52 (67) 92 04/11/20 23:10 100.0 04/11/20 21:00 Nasal Cannula 1.0 04/11/20 20:00 89 04/11/20 20:00 100.0 91 20 100/50 (67) 96 04/11/20 18:00 97.9 108 20 96/55 (69) 96 04/11/20 17:17 106 96/60 04/11/20 16:00 90 04/11/20 16:00 97.9 108 20 96/55 (69) 96 Intake and Output 04/11/20 04/12/20 19:00 07:00 Intake Total 600 ml 200 ml Balance 600 ml 200 ml Intake Oral 600 ml 200 ml # Voids 1 Objective deferred due to possible COVID Microbiology Date/Time Source Procedure Growth Status 04/10/20 06:30 Rectum - Final NO CARBAPENEM-RESISTANT ENTEROBACTERI... Complete 04/10/20 06:30 Rectum Received 04/09/20 15:13 Nasopharynx Coronavirus COVID-19 PCR (ALLIE) - Final Complete Current Medications Medications (Trade) Dose Ordered Sig/Duncan Route PRN Reason Start Time Stop Time Status Last Admin Dose Admin Acetaminophen (Tylenol) 500 mg Q6H PRN ORAL Pain Scale (3-5) 04/10/20 04:45 05/10/20 04:14 04/12/20 13:03 Albuterol Sulfate (Proventil MDI) 2 puff Q4H PRN INH Shortness of Breath 04/09/20 21:15 07/08/20 21:14 Amlodipine Besylate (Norvasc) 10 mg DAILY ORAL 04/10/20 09:00 05/10/20 08:59 Benztropine Mesylate (Cogentin) 0.5 mg DAILY ORAL 04/10/20 09:00 05/10/20 08:59 04/12/20 09:49 Brimonidine Tartrate (Alphagan) 1 drop BID BOTH EYES 04/10/20 09:00 07/09/20 08:59 04/12/20 09:55 Cinacalcet (Sensipar) 90 mg DAILY ORAL 04/10/20 09:00 07/09/20 08:59 04/12/20 09:48 Clonazepam (KlonoPIN) 1 mg BID ORAL 04/10/20 09:00 04/17/20 08:59 04/12/20 09:48 Epoetin Liu (Epoetin Liu-EPBX(NON ESRD)) 8,000 unit FRI-FRI-FRI SUBQ 04/10/20 21:00 07/09/20 20:59 04/10/20 21:21 Famotidine (Pepcid) 10 mg Q48H ORAL 04/10/20 09:00 07/09/20 08:59 04/12/20 09:47 Folic Acid (Folate) 1 mg DAILY ORAL 04/10/20 09:00 05/10/20 08:59 04/12/20 09:47 Heparin Sodium (Porcine) (Heparin 5000 units/ml) 5,000 units EVERY 8 HOURS SUBQ 04/09/20 22:00 05/24/20 21:59 04/12/20 05:46 Labetalol HCl (Normodyne) 300 mg TID ORAL 04/10/20 09:00 05/10/20 08:59 04/12/20 12:50 Levetiracetam (Keppra) 500 mg EVERY 12 HOURS ORAL 04/10/20 09:00 05/10/20 08:59 04/12/20 09:49 Olanzapine (ZyPREXA) 5 mg BID ORAL 04/12/20 18:00 05/25/20 17:59 Quetiapine Fumarate (SEROqueL) 50 mg BID ORAL 04/10/20 09:00 05/25/20 08:59 04/12/20 09:50 Vitamin B Complex/ Vit C/Folic Acid (Nephrovite) 1 tab DAILY ORAL 04/10/20 09:00 05/10/20 08:59 04/12/20 09:48 Assessment/Plan Assessment/Plan Impression: End stage renal disease on HD 2019 novel coronavirus infection with possible pneumonia Normal O2 sats on RA currently Hyperkalemia H/o Heart Disease Elevated Troponin Psychosis Plan - O2 as needed - Azithromycin - Albuterol PRN - monitor imaging - DVT prophylaxis - HD per Renal - monitor for change and await further results - pulmonary chamberlain stable impression, plan, and exam edited and reviewed in detail care discussed with Jonathan Joe MD Apr 12, 2020 14:57
[2020-04-12 16:00] VITALS: BP 93/53
--- NOTE | 2020-04-12 16:15 | Nephrology Progress Note ---
Assessment/Plan Plan Mild Covid 19 On room air. Saturating well DC to SNF delayed due to SNF. [facility]. To accept pt after 7 PM. [facility] ID. Subjective Subjective No new c/o Objective Objective Last 24 Hour Vital Signs Date Time Temp Pulse Resp B/P (MAP) Pulse Ox O2 Delivery O2 Flow Rate FiO2 04/12/20 12:50 89 122/64 04/12/20 12:00 98.1 87 20 122/64 (83) 95 04/12/20 12:00 83 04/12/20 09:00 82 93/50 04/12/20 09:00 82 93/50 04/12/20 09:00 Nasal Cannula 4.0 04/12/20 08:00 85 04/12/20 08:00 98.0 82 20 93/50 (64) 98 04/12/20 05:36 99.5 04/12/20 04:00 101.1 84 20 110/64 (79) 96 04/12/20 04:00 81 04/12/20 00:00 89 04/12/20 00:00 99.5 87 20 97/52 (67) 92 04/11/20 23:10 100.0 04/11/20 21:00 Nasal Cannula 1.0 04/11/20 20:00 89 04/11/20 20:00 100.0 91 20 100/50 (67) 96 04/11/20 18:00 97.9 108 20 96/55 (69) 96 04/11/20 17:17 106 96/60 Intake and Output 04/11/20 04/12/20 19:00 07:00 Intake Total 600 ml 200 ml Balance 600 ml 200 ml Intake Oral 600 ml 200 ml # Voids 1 Height (Feet): 5 Height (Inches): 8.00 Weight (Pounds): 150 Objective CV RR Lungs few wheezes Abd SNT. BS + E no CCE Daily Guerrero MD Apr 12, 2020 16:15
--- NOTE | 2020-04-12 18:02 | NUR ---
NURSE NOTES: Called [facility] for second time to give report. No answer
--- NOTE | 2020-04-12 19:10 | NUR ---
NURSE NOTES: Called [facility] and gave report to Oralia.
[2020-04-12 20:00] VITALS: BP 103/51
--- NOTE | 2020-04-12 20:55 | NUR ---
NURSE NOTES: Pt discharged to [facility]. Pt transferred to [facility] without any incident. Gave report to [facility] personnel, Alec Baltazar. gambling monitor and IV removed. No bleeding noted. Belongings list checked and belongings left with pt. Pt in stable condition.
--- NOTE | 2020-04-13 11:46 | Discharge Summary ---
Discharge Summary Discharge Summary _ DATE OF ADMISSION: 04/09/2020 DATE OF DISCHARGE: 04/12/2020 DISCHARGED BY: Dr. Guerrero REASON FOR ADMISSION: 54 years old male, [facility] facility, with past medical history of cardiac disease, end-stage renal disease , on hemodialysis, was sent for evaluation due to respiratory distress. Patient had prior history of coronavirus infection. Upon evaluation patient had low-grade fever , blood pressure was 140/100, patient was mildly hypoxic. Repeated COVID-19 in emergency department was positive. Chest x-ray demonstrated patchy opacity throughout the lungs, concerning for infectious/inflammatory process. Laboratory work-up revealed no leukocytosis, hemoglobin 9.2, hematocrit 25.9, platelet count 151. Potassium 6.3. BUN 75, creatinine 13.2, consistent with known history of end-stage renal disease. Ferritin 1244, LDH 357, CRP 10, D-dimer 1.55. Troponin 0.206. Lactic acid 1.3. In emergency department hyperkalemia was treated with calcium gluconate and Kayexalate. Patient received aspirin ,dexamethasone, empiric antibiotic, and admitted for further management CONSULTANTS: pulmonary Dr. Aquino ID specialist Dr. Michael LAYTON HOSPITAL COURSE: Patient admitted to telemetry floor to isolation room. Pulse oximetry remained stable on room air. Patient received steroids and ivermectin as per ID specialist recommendation , who also advised to keep patient off antibiotic. Isolation continued. Pulmonary toilet provided. DVT prophylaxis provided. Blood pressure was managed with minoxidil. GI prophylaxis provided. Repeated troponin trending down 0.153 . Patient denied any chest pain . Elevated troponin most likely due to renal failure. Hemodialysis provided with close monitoring of volumes , renal parameters and electrolytes. Potassium trending down. Sensipar continued. Blood pressure was managed with current medication regimen and remained stable. Hemoglobin and hematocrit were closely monitored with goal to keep hemoglobin above 7. Epogen provided. Prior to discharge hemoglobin 8.6 hematocrit 24.5 Seizure precaution maintained. Keppra continued. No evidence of seizure activity while in the hospital. Psych medication continued from the jail facility. Patient clinically stabilized and was ready for transfer to jail facility for continuation of care . FINAL DIAGNOSES: COVID pneumonia with mild hypoxia End-stage renal disease on hemodialysis Hypertensive cardiovascular disease Hyperkalemia Elevated troponin Psychosis Secondary hyperparathyroidism Hyperkalemia Schizophrenia Glaucoma DISCHARGE MEDICATIONS: See Medication Reconciliation list. DISCHARGE INSTRUCTIONS: [facility] was [facility] to the jail facility. Follow up with medical doctor at the facility. I have been assigned to dictate discharge summary for this account. I was not involved in the patient's management. Rosa Elena Cummings NP Apr 13, 2020 11:46
== END 2020-04-12 20:50 | DRG 177 ==
LOC: EDBD 13:53 → EMR 14:10 → 2E 18:55 → EDBEDREQ 04-10 05:28
PROC: 5A1D70Z Performance of Urinary Filtration, Intermittent, Less than 6 Hours Per Day (ICD-10-PCS; principal; 2020-04-09)
DX: U07.1 COVID-19 (principal); J12.89 Other viral pneumonia; N18.6 End stage renal disease; I13.11 Hypertensive heart and chronic kidney disease without heart failure, with stage 5 chronic kidney disease, or end stage renal disease; N25.81 Secondary hyperparathyroidism of renal origin; Z99.2 Dependence on renal dialysis; F20.9 Schizophrenia, unspecified; Z88.8 Allergy status to other drugs, medicaments and biological substances; F17.200 Nicotine dependence, unspecified, uncomplicated; R09.02 Hypoxemia; H40.9 Unspecified glaucoma; E87.5 Hyperkalemia; F29 Unspecified psychosis not due to a substance or known physiological condition
CPT/HCPCS: 36415; 71045; 80048; 80053; 82550; 82728; 83605; 83615; 83690; 83880; 84484; 85025; 85379; 85610; 85730; 86140; 86706; 87081; 93005; 96374; 96375; 99285